=== PATIENT | male | born 1995 | race Caucasian/White ===

== ENCOUNTER 2017-04-04 04:18 | Emergency (ER) | payer SELFPAY ==
--- NOTE | 2017-04-04 04:27 | NUR ---
PATIENT ADMITS TO DRINKING, FEELING NAUSOUS. NAD NOTED, PT IS ALERT X 3, AMBULATED WITH STEADY GAIT. PT DECIDED HE DOESNT WANT TO BE SEEN BY ED, PT LEFT [facility]. PT FRIEND SAID HE WILL DRIVE HIM HOME
== END 2017-04-04 04:33 | disposition left against medical advice (07) ==
LOC: ER 04:20
DX: Z53.21 Procedure and treatment not carried out due to patient leaving prior to being seen by health care provider (principal)

== ENCOUNTER 2019-07-14 01:09 | Emergency (ER) | payer SELFPAY ==
[~2019-07-14] VITALS: Ht 170.2 cm; Wt 59.9 kg
--- NOTE | 2019-07-14 01:15 | NUR ---
PT [id number] FROM [address] PER RA, PT WAS FOUND UNRESPONSIVE BY GIRLFRIEND DUE TO HEROIN OD X2 HR AGO, PT BECAME RESPONSIVE AND LEFT AMA WITH EMT AT THAT TIME. PER EMT, PT UNRESPONIVE AND NOT BREATHING BY GIRLFRIEND AND REC'D NASAL NARCAN. PT WAS AAOX4 WHEN RA ARRIVED ON SCENE. PT STILL AAOX4 ON ARRIVAL TO ED. DENIES SI/HI. RESPIRATIONS EVEN AND UNLABORED. SKIN INTACT. NO ACUTE DISTRESS NOTED AT THIS TIME. PLACED ON MONITOR, WILL CONTINUE TO MONITOR.
--- NOTE | 2019-07-14 02:12 | NUR ---
MANOHAR (GIRLFRIEND) CONTACT INFORMATION: [phone]
--- NOTE | 2019-07-14 03:50 | NUR ---
Patient discharged to home in stable condition. Written and verbal after care instructions given. Patient verbalizes understanding of instruction.IV removed. Catheter intact and site benign. Pressure and 4x4 applied to site. No bleeding noted.Pt ambulatory with a steady gait
[2019-07-14 03:51] VITALS: BP 125/79
== END 2019-07-14 03:52 | disposition home or self-care (01) ==
LOC: ER 01:11
DX: T40.1X1A Poisoning by heroin, accidental (unintentional), initial encounter (principal); F41.9 Anxiety disorder, unspecified; Y92.89 Other specified places as the place of occurrence of the external cause